=== PATIENT | male | born 1985 | race Caucasian/White ===

== ENCOUNTER 2016-10-12 12:28 | Emergency (ER) | payer BC, OTHER ==
[~2016-10-12] VITALS: Ht 172.7 cm; Wt 95.0 kg
[2016-10-12 12:29] VITALS: BP 136/77; PULSE 72; RESP 18; TEMP 98.2; O2SAT 100
--- NOTE | 2016-10-12 12:48 | PD ---
Physical Exam Time Seen by Provider: 12:47 Narrative 31yo M c/o L eye pain [id number]. Reports occasional blurry vision. Crusted in the mornings. Unknown trauma, foreign body. Denies fever, vomiting. Patient stable. Patient seen in triage. Awaiting bed placement. Data Data Last Documented VS Vital Signs Date Time Temp Pulse Resp B/P Pulse Ox O2 Delivery O2 Flow Rate FiO2 10/12/16 12:29 98.2 72 18 136/77 100 MDM Supervised Visit with ERROL: No Scripts No Active Prescriptions or Reported Meds Sandy Brice Oct 12, 2016 12:48
--- NOTE | 2016-10-12 13:24 | PD ---
HPI . Left eye irritation for 3 weeks Chief Complaint: ENT Complaint Time Seen by Provider: 13:24 Travel History International Travel<30 days: No Contact w/Intl Traveler<30days: No Traveled to known affect area: No History of Present Illness HPI 31-year-old male with no significant past medical history here with complaints of left eye irritation for about 3 weeks. Patient says he does not recall the actual event that may have caused this, but he complains of itchy, watery, irritated eyes for the past 3 weeks. He has tried some lubricating eyedrops, without much relief. He does report some occasional intermittent eye pain. He says that the symptoms are making his vision somewhat blurry, but he is able to see. He does not want to go to see an eye doctor as his insurance does not kick in until next month. His girlfriend who is in training for nursing school , tried to flush his eye. His friend looked for fb. He decided to come to the emergency department for evaluation instead. PFSH Past Medical History Asthma: Yes ( A CHILD) Diabetes: No Diminished Hearing: No Musculoskeletal: Yes Immunizations Current: No Social History Alcohol Use: Yes (SELDOM, BEER, MIX DRINKS) Tobacco Use: No Substance Use: No (Denies abuse of any substance. ) Allergies-Medications (Allergen,Severity, Reaction): Coded Allergies: Milk (Verified Allergy, Mild, 10/12/16) Per pt. Reported Meds & Prescriptions Reported Meds & Active Scripts Active Acyclovir 800 Mg Tab 800 Mg PO 5 TIMES A DAY 7 Days Erythromycin Opth Oint 5 Mg/Gm Oint 1 Applic RIGHT EYE BID 5 Days Review of Systems General / Constitutional: No: Fever Eyes: Positive: Blurred Vision, Photophobia, Redness, Pain, Tearing, No: Foreign Body Sensation, Visual changes HENT: No: Headaches Cardiovascular: No: Chest Pain or Discomfort Respiratory: No: Shortness of Breath Gastrointestinal: No: Abdominal Pain Genitourinary: No: Dysuria Musculoskeletal: No: Pain Skin: No Rash Neurologic: No: Weakness Psychiatric: No: Depression Endocrine: No: Polydipsia Hematologic/Lymphatic: No: Easy Bruising Physical Exam Narrative GENERAL: AAO x 3, no acute distress, Well-nourished, well-developed patient. SKIN: Warm and dry. No visible rashes or bruising. HEAD: Normocephalic and atraumatic. EYES: No scleral icterus. No injection or drainage. EOM intact, PERRLA. Left eye is visibly irritated. It is erythematous and draining clear discharge. ENT: No nasal drainage noted. Mucous membranes pink. Airway patent. NECK: Supple, trachea midline. No JVD. CARDIOVASCULAR: Regular rate and rhythm without murmurs, gallops, or rubs. RESPIRATORY: Breath sounds equal bilaterally. No accessory muscle use. No rhonchi or rales. GASTROINTESTINAL: Abdomen soft, non-tender, nondistended. EXTREMITIES: No cyanosis or edema. BACK: Nontender without obvious deformity. No CVA tenderness. PSYCH: AAO x 3, normal affect. Data Data Last Documented VS Vital Signs Date Time Temp Pulse Resp B/P Pulse Ox O2 Delivery O2 Flow Rate FiO2 10/12/16 12:29 98.2 72 18 136/77 100 Orders Proparacaine 0.5% Opth Soln (Alcaine 0.5 (10/12/16 13:30) Mandatory Outpatient Referral (10/12/16 14:11) [facility] Medical Decision Making Medical Screen Exam Complete: Yes Emergency Medical Condition: Yes Medical Record Reviewed: Yes Differential Diagnosis Corneal abrasion, foreign body, less likely acute angle glaucoma Narrative Course 31-year-old male with no significant past medical history here with complaints of left eye irritation for about 3 weeks. Patient says he does not recall the actual event that may have caused this, but he complains of itchy, watery, irritated eyes for the past 3 weeks. He has tried some lubricating eyedrops, without much relief. He does report some occasional intermittent eye pain. He says that the symptoms are making his vision somewhat blurry, but he is able to see. He does not want to go to see an eye doctor as his insurance does not kick in until next month. His girlfriend who is in training for nursing school , tried to flush his eye. His friend looked for fb. He decided to come to the emergency department for evaluation instead. Patient seen and examined. No obvious FB seen on examination. Staining reveals corneal abrasion and possible Dendritic lesions. Dr. Redding brought in to look at patient. He is in agreement. [id number] Call placed for CB from ophthalmology [phone]: Discussed with Dr. Bello. She recommends acyclovir orally along with erythromycin ointment. Patient is to call for an appointment I had a discussion with the patient explaining the severity of his condition. I recommend that he calls her within the next 2-3 days for an appointment. Patient verbalized understanding of instructions, questions were answered, and thanked me for their care. I advised them if their condition worsens, please return to the nearest emergency room for further care. Procedures Procedure Narrative Fluorescein eye staining procedure: Left eye proparacaine drops instilled into the left eye Local anesthesia was accomplished. the eye was inspected for any type of obvious foreign body, none was found fluorescein stain was applied to look for corneal abrasion, around 12 o'clock position there is an obvious corneal abrasion and what appears to be possible dendritic lesions extending into the visual cortex Diagnosis Primary Impression: Corneal abrasion, left Qualified Code: S05.02XA - Corneal abrasion, left, initial encounter Additional Impression: Dendritic keratitis Referrals: [facility] Patient Instructions: General Instructions Additional Instructions: Please see an cloth washer back tender in the next 2-3 days. Please call for an appointment: Dr. Bello [phone] If your vision worsens, please go to the nearest emergency department. Take medications as prescribed. Scripts Acyclovir 800 Mg [id number] Mg PO 5 TIMES A DAY 7 Days Ref 0 Prov:Brian Redding MD 10/12/16 Erythromycin Opth Oint 5 Mg/Gm Oint1 Applic RIGHT EYE BID 5 Days Ref 0 Prov:Brian Redding MD 10/12/16 Disposition: 01 DISCHARGE HOME Condition: Stable Michelle Mcintyre Oct 12, 2016 13:24
[2016-10-12] MEDS ORDERED: PROPARACAINE HCL 0.5% OPHT SOLN 15 ML BTL EACH EYE ONE (13:30)
[2016-10-12] MEDS ORDERED: ERYTOIN10 RIGHT EYE (14:13)
[2016-10-12] MEDS ORDERED: ACYC800T PO (14:56)
== END 2016-10-12 15:05 | disposition home or self-care (01) ==
LOC: NEPK 12:28
DX: S05.02XA Injury of conjunctiva and corneal abrasion without foreign body, left eye, initial encounter (principal); B00.52 Herpesviral keratitis; Z87.39 Personal history of other diseases of the musculoskeletal system and connective tissue; X58.XXXA Exposure to other specified factors, initial encounter
CPT/HCPCS: 99283